=== PATIENT | female | born 2000 | race Caucasian/White ===

== ENCOUNTER 2020-03-31 05:31 | Emergency (ER) | payer BC ==
[2020-03-31] MEDS ORDERED: Lidocaine 4% Top Soln 50 ML Bottle PO ONE (06:00)
--- NOTE | 2020-03-31 06:00 | EDM.PDOC ---
ED HPI GENERAL MEDICAL PROBLEM - General Chief Complaint: ENT Problem Stated Complaint: SORE THROAT Time Seen by Provider: 03/31/20 05:55 - History of Present Illness INITIAL COMMENTS - FREE TEXT/NARRATIVE: 20-year-old female otherwise well presenting with painful mouth sores. Patient developed sore throat and mouth pain with associated fever 6 days ago. She was seen at a walk-in clinic 4 days ago she was tested for strep and it was negative but the provider chose to treat her strep. She has been taking the Augmentin without improvement. No cough no rash no abdominal pain fevers that respond to Tylenol and ibuprofen. No neck stiffness no severe headache no exacerbating or alleviating factors no other associated symptoms gradually progressive mouth sores. Throat Pain Score (Numeric/FACES): 5 - Related Data Allergies Allergy/AdvReac Type Severity Reaction Status Date / Time No Known Allergies Allergy Verified 03/31/20 05:50 Home Meds: Home Meds Albuterol [Take Home: Albuterol 6.7 GM, 1 INH Pack] 1 dose INH ASDIRECTED PRN 06/29/15 [History] Past Medical History Respiratory History: Reports: Asthma Endocrine/Metabolic History: Reports: Obesity/BMI 30+ - Past Surgical History HEENT Surgical History: Reports: Adenoidectomy, Tonsillectomy Musculoskeletal Surgical History: Reports: Other (See Below) Other Musculoskeletal Surgeries/Procedures:: hand surgery Social & Family History - Family History Family Medical History: No Pertinent Family History - Tobacco Use Tobacco Use Status *Q: Never Tobacco User Second Hand Smoke Exposure: No - Recreational Drug Use Recreational Drug Use: No ED ROS GENERAL - Review of Systems Review Of Systems: See Below Free Text/Narrative/Comment: General: No fever. Skin: No rash. Eyes: No vision problems. ENT: Per HPI Neck: No neck stiffness. Respiratory: No shortness of breath. Cardiac: No chest pain. Gastrointestinal: No nausea, vomiting or abdominal pain. Urinary: No dysuria. Musculoskeletal: No myalgias/arthralgias. Neurologic: No headache. ED EXAM, GENERAL - Physical Exam Exam: See Below Free Text/Narrative:: General Appearance: No acute distress, appears comfortable Skin: No rash HEENT: Normocephalic/atraumatic, sclera anicteric, mucous membranes moist, scattered ulcerations on erythematous base anterior to the bilateral tonsillar pillars on the buccal mucosa and on the hard and soft palate consistent with herpangina Neck: Normal range of motion Chest and Lungs: Bilateral breath sounds, clear to auscultation Neurologic: Awake, alert, no obvious deficits, moving all extremities Psychiatric: Appropriate, cooperative Course - Vital Signs Last Recorded V/S: Last Vital Signs Temp 99.0 F 03/31/20 05:45 Pulse 101 H 03/31/20 05:45 Resp 14 03/31/20 05:45 BP 122/80 03/31/20 05:45 Pulse Ox 96 03/31/20 05:45 - Orders/Labs/Meds Meds: Medications Discontinued Medications Generic Name Dose Route Start Last Admin Trade Name Freq PRN Reason Stop Dose Admin Lidocaine HCl 15 ml 03/31/20 06:00 Xylocaine 4% Top Soln PO 03/31/20 06:01 ONETIME ONE Lidocaine HCl Confirm 03/31/20 06:06 Xylocaine 2% Viscous Administered 03/31/20 06:07 Dose 15 ml .ROUTE .STK-MED ONE Departure - Departure Time of Disposition: 05:59 Disposition: Home, Self-Care 01 Condition: Good Clinical Impression: Herpangina - Discharge Information *PRESCRIPTION DRUG MONITORING PROGRAM REVIEWED*: Not Applicable *COPY OF PRESCRIPTION DRUG MONITORING REPORT IN PATIENT KRISTINA: Not Applicable Instructions: Herpangina, Pediatric Referrals: Josh Ortiz MD [Primary Care Provider] - 3 Days Forms: ED Department Discharge Additional Instructions: Your sore throat and mouth lesions are herpangina which is due to a viral infection usually a type of enterovirus. It typically runs its course over 7 to 10 days so you should be getting towards the end of your course. The antibiotics will not help and I do not advise continuing them. Sepsis Event Note (ED) - Evaluation Sepsis Screening Result: Possible Sepsis Risk - Focused Exam Vital Signs: Vital Signs Temp Pulse Resp BP Pulse Ox 03/31/20 05:45 99.0 F 101 H 14 122/80 96 - Assessment/Plan Assessment:: 20-year-old female presenting with signs and symptoms consistent with herpangina no sign of deep space infection of the head or neck nothing that suggest strep pharyngitis and advised the patient to stop taking the Augmentin. Anticipatory guidance provided return precautions discussed and understood
[2020-03-31] MEDS ORDERED: Lidocaine 2% Viscous Solution 15 ML Cup ONE (06:06)
[2020-03-31] MEDS ORDERED: Lidocaine 2% Viscous Solution 15 ML Cup PO ONE (06:12)
[2020-03-31 06:31] VITALS: BP 118/72; PULSE 84
== END 2020-03-31 06:15 | disposition home or self-care (01) ==
LOC: MW.ED 05:31
DX: B08.5 Enteroviral vesicular pharyngitis (principal); J45.909 Unspecified asthma, uncomplicated; E66.9 Obesity, unspecified
CPT/HCPCS: 99283; A9270; 99282